=== PATIENT | male | born 1995 | race Two or more races ===

== ENCOUNTER 2022-09-15 12:17 | Emergency (ER) | payer SELFPAY ==
[~2022-09-15] VITALS: Ht 182.9 cm; Wt 81.8 kg
[2022-09-15 12:19] VITALS: BP 115/68
[2022-09-15] MEDS ORDERED: KETOROLAC TROMETHAMINE 30 MG/ML VIAL IM ONE (14:15)
[2022-09-15] MEDS ORDERED: ACETAMINOPHEN 500 MG TABLET PO ONE (14:15)
== END 2022-09-15 15:56 | disposition home or self-care (01) ==
LOC: EMS 12:25
DX: R07.81 Pleurodynia (principal); M25.562 Pain in left knee; M79.641 Pain in right hand; F17.210 Nicotine dependence, cigarettes, uncomplicated; Z91.013 Allergy to seafood; V89.9XXA Person injured in unspecified vehicle accident, initial encounter; Y93.89 Activity, other specified; Y92.89 Other specified places as the place of occurrence of the external cause; Y99.8 Other external cause status
CPT/HCPCS: 99284; 71045; 73130; 73562; 96372; J1885